=== PATIENT | female | born 1980 | race Hispanic/Latino ===

== ENCOUNTER 2021-11-24 09:36 | Inpatient (IN) | payer BC ==
[~2021-11-24] VITALS: Ht 162.6 cm; Wt 71.2 kg
[2021-11-24] MEDS ORDERED: ONDANSETRON HCL INJ 2MG/ML 2ML 2 MG/ML VIAL IV STA (10:11)
[2021-11-24] MEDS ORDERED: KETOROLAC TROMETHAMINE 30 MG/ML VIAL IV STA (10:11)
[2021-11-24] MEDS ORDERED: FAMOTIDINE 20 MG/2 ML VIAL IV STA (10:11)
[2021-11-24] MEDS ORDERED: ONDANSETRON HCL INJ 2MG/ML 2ML 2 MG/ML VIAL ONE ×2 (10:12→12:37)
[2021-11-24] MEDS ORDERED: KETOROLAC TROMETHAMINE 30 MG/ML VIAL ONE (10:13)
[2021-11-24] MEDS ORDERED: FAMOTIDINE 20 MG/2 ML VIAL IV ONE (10:13)
[2021-11-24] MEDS ORDERED: SODIUM CHLORIDE 0.9% 1000ML 1,000 ML ONE (10:13)
[2021-11-24] MEDS ORDERED: SODIUM CHLORIDE 0.9% 1000ML 1,000 ML IV ONE (10:15)
[2021-11-24] MEDS ORDERED: IOPAMIDOL 370 MG/ML 100 ML INFUS..BTL INJ ONE (11:47)
[2021-11-24] MEDS: ONDANSETRON HCL INJ 2MG/ML 2ML 2 MG/ML VIAL IV PRN ×2 (12:30→16:00)
[2021-11-24] MEDS: Morphine 4mg Syringe 4 MG/ML INJ IV PRN ×2 (12:33→16:00)
[2021-11-24] MEDS ORDERED: SODIUM CHLORIDE 0.9% 250ML 250 ML ONE (12:37)
[2021-11-24] MEDS ORDERED: PIPERACILLIN/TAZOBACTAM 3.375 GM VIAL ONE (12:37)
[2021-11-24] MEDS ORDERED: Morphine 4mg Syringe 4 MG/ML INJ ONE (12:37)
[2021-11-24 14:50] VITALS: BP 114/75
[2021-11-24] MEDS: SODIUM CHLORIDE 0.9% 1000ML 1,000 ML IV SCH ×2 (15:20→20:30)
[2021-11-24] MEDS: ACETAMINOPHEN 325 MG TAB PO PRN ×2 (16:00→22:15)
[2021-11-24 16:17] VITALS: BP 114/75
[2021-11-24 16:22] VITALS: BP 114/75
[2021-11-24] MEDS ORDERED: POTASSIUM BICARBONATE/CIT AC 20 MEQ TABLET.EFF PO ONE (17:30)
[2021-11-24 21:00] VITALS: BP 106/66
[2021-11-24 23:09] VITALS: BP 106/66
[2021-11-25] VITALS (8 sets, daily range): BP systolic 104–126; BP diastolic 63–82
[2021-11-25] MEDS: SODIUM CHLORIDE 0.9% 1000ML 1,000 ML IV SCH ×3 (06:04→21:28)
[2021-11-25] MEDS: ACETAMINOPHEN 325 MG TAB PO PRN ×2 (08:48→14:42)
[2021-11-25 09:04] LABS: BASOPHILS % 0.3 % (0.0-1.0); EOSINOPHILS % 0.4 % (0.0-6.0); HEMATOCRIT 32.7 % (34.2-44.1); HEMOGLOBIN 10.8 g/dL (12.0-16.0); LYMPHOCYTES # (AUTO) 1.3 (1.0-3.2); LYMPHOCYTES % 17.9 % (18.0-39.1); MEAN CORPUSCULAR HEMOGLOBIN 30.9 pg (28-32); MEAN CORPUSCULAR VOLUME 93.7 fL (81-99); MONOCYTES # (AUTO) 0.6 (0.2-0.8); MONOCYTES % 8.3 % (4.4-11.3); NEUTROPHILS # (AUTO) 5.2 (2.1-6.9); NEUTROPHILS % 72.3 % (38.7-80.0); PLATELET COUNT 188 x10e3/uL (140-360); RED BLOOD COUNT 3.49 x10e6/uL (3.6-5.1); RED CELL DISTRIBUTION WIDTH 12.3 % (11.7-14.4)
[2021-11-25 09:34] LABS: ALBUMIN 2.6 g/dL (3.5-5.0); ANION GAP 10.7 mmol/L (8-16); BILIRUBIN,DIRECT 0.4 mg/dL (0.0-0.5); CALCIUM 7.9 mg/dL (8.4-10.2); CREATININE, SERUM 0.68 mg/dL (0.57-1.11)
[2021-11-25 10:02] LABS: POTASSIUM 2.7 mmol/L (3.5-5.1)
[2021-11-25] MEDS ORDERED: POTASSIUM CHLORIDE 10MEQ EA PO ONE (11:00)
[2021-11-25] MEDS ORDERED: METHYLPREDNISOLONE SOD SUCC 125 MG/2ML VIAL IV ONE (21:15)
[2021-11-26] VITALS: BP 119/75
[2021-11-26] MEDS ORDERED: METRONIDAZOLE 500MG/NS 100ML 100 ML IV STA (00:05)
[2021-11-26 02:22] LABS: % IRON SATURATION 9 % (15-50); IRON 18 ug/dL (50-170); TOTAL IRON BINDING CAPACITY 203 ug/dL (261-478); TRANSFERRIN 145 mg/dL (180-382)
[2021-11-26 04:00] VITALS: BP 119/77
[2021-11-26] MEDS: SODIUM CHLORIDE 0.9% 1000ML 1,000 ML IV SCH ×2 (04:30→11:34)
[2021-11-26 06:38] LABS: BASOPHILS % 0.1 % (0.0-1.0); HEMATOCRIT 34.1 % (34.2-44.1); HEMOGLOBIN 11.2 g/dL (12.0-16.0); LYMPHOCYTES # (AUTO) 0.9 (1.0-3.2); LYMPHOCYTES % 13.1 % (18.0-39.1); MEAN CORPUSCULAR HEMOGLOBIN 30.7 pg (28-32); MEAN CORPUSCULAR HGB CONC 32.8 g/dL (31-35); MEAN CORPUSCULAR VOLUME 93.4 fL (81-99); MONOCYTES # (AUTO) 0.1 (0.2-0.8); MONOCYTES % 1.8 % (4.4-11.3); NEUTROPHILS # (AUTO) 5.7 (2.1-6.9); NEUTROPHILS % 84.3 % (38.7-80.0); PLATELET COUNT 213 x10e3/uL (140-360); RED BLOOD COUNT 3.65 x10e6/uL (3.6-5.1); RED CELL DISTRIBUTION WIDTH 11.9 % (11.7-14.4)
[2021-11-26 06:59] LABS: ALBUMIN 2.8 g/dL (3.5-5.0); ALBUMIN/GLOBULIN RATIO 0.8 (0.8-2.0); ANION GAP 12.3 mmol/L (8-16); CALCIUM 8.4 mg/dL (8.4-10.2); CREATININE, SERUM 0.56 mg/dL (0.57-1.11); POTASSIUM 3.3 mmol/L (3.5-5.1)
[2021-11-26 07:47] VITALS: BP 128/80
[2021-11-26] MEDS ORDERED: METRONIDAZOLE 500MG/NS 100ML 100 ML IV SCH (08:00)
[2021-11-26] MEDS ORDERED: DICYCLOMINE HCL 10 MG CAP PO SCH (09:00)
[2021-11-26 09:32] VITALS: BP 128/80
[2021-11-26 11:28] VITALS: BP 118/75
[2021-11-26] MEDS ORDERED: METRONIDAZOLE500 MG PO (11:53)
[2021-11-26] MEDS ORDERED: CIPRO500 MG PO (11:53)
[2021-11-26] MEDS ORDERED: DICYCLOMINE HCL20 MG PO (11:53)
[2021-11-26] MEDS ORDERED: POTASSIUM CHLORIDE 20 MEQ TAB CR PO NR (12:00)
== END 2021-11-26 13:41 | disposition home or self-care (01) | DRG 392 ==
LOC: FSED 10:09 → ERHOLD 12:25 → INTOOBSV 12:25 → MED/SURG2 15:04 → OBSVTOIN 11-25 23:30
PROVIDERS: ADMIT Internal Medicine; ATTEND Internal Medicine
DX: K52.9 Noninfective gastroenteritis and colitis, unspecified (principal); R94.5 Abnormal results of liver function studies; E87.6 Hypokalemia; Z20.822 Contact with and (suspected) exposure to COVID-19; R15.2 Fecal urgency
CPT/HCPCS: 36415; 74177; 80048; 80053; 80076; 81003; 81025; 82607; 82746; 83540; 83735; 84132; 84466; 85025; 85045; 96374; 96375; 96376; 99284; G0378; J1885; J2270; J2405; J2543; J2930; J7030; J7050; Q9967; U0002

== ENCOUNTER → 2022-01-14 | Day surgery (SDC) | payer BC ==
[~2022-01-14] MED LIST: CIPRO500 MG PO; DICYCLOMINE HCL20 MG PO; FENTANYL CITRATE/PF 100MCG/2 ML INJ ONE; HYOSCYAMINE SULFATE 0.5 MG/ML INJ ONE; LIDOCAINE HCL 2% LOCAL INJ 5 ML SDV VIAL INJ ONE; METRONIDAZOLE500 MG PO; MIDAZOLAM HCL 2 MG/2 ML VIAL ONE; MULTI-VITAMIN1 EACH PO; PROPOFOL IV EMULSION 10 MG/ML 20 ML VIAL ONE
[2022-01-14 11:13] VITALS: BP 124/80
== END | disposition home or self-care (01) ==
LOC: OR 08:07
PROVIDERS: ATTEND Internal Medicine Gastroenterology
DX: K52.9 Noninfective gastroenteritis and colitis, unspecified (principal); D12.0 Benign neoplasm of cecum; D12.2 Benign neoplasm of ascending colon; G43.909 Migraine, unspecified, not intractable, without status migrainosus; R03.0 Elevated blood-pressure reading, without diagnosis of hypertension; Z01.812 Encounter for preprocedural laboratory examination; Z20.822 Contact with and (suspected) exposure to COVID-19; Z79.899 Other long term (current) drug therapy; Z68.26 Body mass index [BMI] 26.0-26.9, adult
CPT/HCPCS: 0223U; 36415; 45380; 81025; J1980; J2001; J2250; J2704; J3010; 45378